=== PATIENT | female | born 1955 | race Caucasian/White ===

== ENCOUNTER 2021-08-30 14:28 | Inpatient (IN) ==
[2021-08-30] MEDS ORDERED: methylPREDNISolone 125 MG/2 ML VIAL IVP ONE ×2 (14:55→21:15)
[2021-08-30] MEDS ORDERED: Ipratropium/Albuterol Neb 3 ML IH ONE (14:55)
[2021-08-30 15:14] LABS: Basophils % 0.1 %; Hematocrit 42.1 % (35.3-44.9); Hemoglobin 14.3 g/dL (11.5-15.4); Immature Granulocytes % 0.1 % (0-4); Lymphocytes # 1.3 K/mcL (0.6-4.6); Lymphocytes % 17.8 %; Mean Corpuscular Hemoglobin 28.1 pg (28.0-33.3); Mean Corpuscular Volume 82.7 fL (83.0-100.0); Mean Platelet Volume 8.4 fL (9.4-12.4); Monocytes # 0.6 K/mcL (0.0-1.3); Monocytes % 8.5 %; Neutrophils # 5.5 K/mcL (1.6-8.9); Platelet Count 248 K/mcL (140-400); Red Blood Count 5.09 M/mcL (3.82-4.97); Red Cell Distribution Width 13.8 % (11.5-14.5); Segmented Neutrophils % 73.5 %; White Blood Count 7.5 K/mcL (4.3-11.1)
[2021-08-30 15:15] LABS: VBG HCO3 15 mEq/L (21-27); VBG PCO2 25 mmHg (41-51); VBG PO2 85 mmHg (25-50)
[2021-08-30 15:36] LABS: Alanine Aminotransferase 13 Units/L (7-52); Albumin 4.4 g/dL (3.5-5.7); Albumin/Globulin Ratio 1.2 (1.1-2.2); Alkaline Phosphatase 117 Units/L (34-104); Aspartate Amino Transferase 16 Units/L (13-39); BUN/Creatinine Ratio 16 (6-26); Bilirubin,Direct 0.1 mg/dL (0.0-0.2); Bilirubin,Indirect 0.3 mg/dL (0.0-1.0); Bilirubin,Total 0.4 mg/dL (0.3-1.0); Blood Urea Nitrogen 16 mg/dL (8-23); Calcium 9.3 mg/dL (8.6-10.3); Carbon Dioxide 14 mEq/L (23-29); Chloride 98 mEq/L (98-107); Globulin 3.7 g/dL (2.4-3.5); Glucose 343 mg/dL (70-105); Magnesium 1.3 mg/dL (1.6-2.6); Osmolality,Calculated 285 (280-300); Potassium 4.1 mEq/L (3.5-5.1); Sodium 130 mEq/L (136-145); Total Protein 8.1 g/dL (6.4-8.9); Troponin I < 0.03 ng/mL (< 0.04); eGFR For African Americans > 60 (> 60); eGFR For Non-African Americans 57 (> 60)
[2021-08-30 15:49] LABS: Influenza A PCR Negative (Negative); Influenza B PCR Negative (Negative); Resp. Syncytial Virus PCR Negative (Negative)
[2021-08-30 15:51] LABS: SARS-CoV-2 by PCR (In House) Negative (Negative)
[2021-08-30 16:49] LABS: ABG Base Excess -6 mEq/L (-2 to 3); ABG HCO3 17 mEq/L (21-27); ABG Oxygen Saturation 100 % (95-98); ABG PCO2 25 mmHg (35-45); ABG PH 7.44 pH Units (7.32-7.45); ABG PO2 198 mmHg (85-104); ABG TCO2 17 mEq/L (20-26)
[2021-08-30] MEDS ORDERED: 0.9 % Sodium Chloride 500 ML IVC ONE (19:20)
[2021-08-30] MEDS ORDERED: RIZATRIPTAN BENZOATE 5 MG PO PRN (21:08)
[2021-08-30] MEDS ORDERED: *HR* Dextrose 50 % in Water (Syg) 50 ML SYRINGE IVP PRN (21:10)
[2021-08-30] MEDS ORDERED: Dextrose Gel 15 GM/37.5 ML TUBE PO PRN ×2 (21:10)
[2021-08-30] MEDS ORDERED: D5% in Water 1,000 ML IVC PRN (21:10)
[2021-08-30] MEDS ORDERED: 0.9 % Sodium Chloride 1,000 ML IVC SCH (21:15)
[2021-08-30] MEDS ORDERED: Naloxone 0.4 MG/ML INJ IVP PRN (21:26)
[2021-08-30] MEDS ORDERED: Acetaminophen 325 MG TABLET PO PRN (21:26)
[2021-08-30] MEDS: Azithromycin 500 MG in 0.9 % Sodium Chloride 250 ML IVPB SCH (22:16)
[2021-08-30] MEDS: Levalbuterol Neb 1.25 MG/3 ML IH SCH (22:55)
[2021-08-30] MEDS: Insulin LISPRO 300 UNITS/3 ML VIAL SUBQ SCH (23:15)
[2021-08-31] MEDS ORDERED: Insulin DETEMIR 100 UNIT/ML X5UNITS SUBQ ONE (01:38)
[2021-08-31] MEDS: Levalbuterol Neb 1.25 MG/3 ML IH SCH ×3 (03:25→10:56)
[2021-08-31] MEDS: *HR* Heparin 5,000 UNIT/ML VIAL SQ SCH ×2 (05:32→16:46)
[2021-08-31 05:56] LABS: Hematocrit 37.2 % (35.3-44.9); Mean Corpuscular HGB Conc 33.3 g/dL (31.6-35.5); Mean Corpuscular Hemoglobin 27.7 pg (28.0-33.3); Mean Platelet Volume 8.4 fL (9.4-12.4); Platelet Count 215 K/mcL (140-400); Red Blood Count 4.48 M/mcL (3.82-4.97); Red Cell Distribution Width 14.2 % (11.5-14.5); White Blood Count 8.8 K/mcL (4.3-11.1)
[2021-08-31 05:57] LABS: Hemoglobin 12.4 g/dL (11.5-15.4)
[2021-08-31] MEDS ORDERED: MethylPREDNISolone 40 MG/ML VIAL IVP SCH ×2 (06:00→08:00)
[2021-08-31 06:18] LABS: % Iron Saturation 15 % (15-50); BUN/Creatinine Ratio 18 (6-26); Blood Urea Nitrogen 16 mg/dL (8-23); Calcium 8.6 mg/dL (8.6-10.3); Carbon Dioxide 17 mEq/L (23-29); Chloride 104 mEq/L (98-107); Chol/HDL Ratio 2.9 (0-4.9); Cholesterol 137 mg/dL (< 200); Glucose 290 mg/dL (70-105); HDL Cholesterol 47 mg/dL (40-59); Iron 50 mcg/dL (50-170); LDL Cholesterol,Calculated 70 mg/dL (< 100); Osmolality,Calculated 290 (280-300); Potassium 4.1 mEq/L (3.5-5.1); Sodium 134 mEq/L (136-145); Transferrin 243 mg/dL (203-362); Triglycerides 98 mg/dL (< 150); eGFR For African Americans > 60 (> 60); eGFR For Non-African Americans > 60 (> 60)
[2021-08-31 06:35] LABS: Ferritin 128 ng/mL (10-120)
[2021-08-31 06:45] LABS: Folate > 22.3 ng/mL (3.0-16.0); Vitamin B12 > 1500 pg/mL (250-1100)
[2021-08-31] MEDS: Multivit/Ca/Min/Fe/FA 1 TAB TABLET PO SCH (08:17)
[2021-08-31] MEDS: predniSONE 20 MG TABLET PO SCH (08:17)
[2021-08-31] MEDS: Cyanocobalamin (B-12) 1,000 MCG TABLET PO SCH (08:17)
[2021-08-31] MEDS: lisinopriL 20 MG TABLET PO SCH (08:18)
[2021-08-31] MEDS: Loratadine 10 MG TABLET PO SCH (08:18)
[2021-08-31] MEDS: Insulin DETEMIR 100 UNIT/ML X5UNITS SUBQ SCH ×2 (08:24→21:07)
[2021-08-31] MEDS: Insulin LISPRO 300 UNITS/3 ML VIAL SUBQ SCH ×4 (08:25→20:03)
[2021-08-31 08:48] LABS: Estimated Average Glucose 157 mg/dl; Hemoglobin A1C 7.1 %
[2021-08-31 10:11] LABS: Procalcitonin 0.07 ng/mL (0.00-0.15)
[2021-08-31] MEDS ORDERED: Ringers Solution, Lactated 1,000 ML IVC ONE (10:24)
[2021-08-31] MEDS ORDERED: Perflutren Lipid Microsphere 1.3 ML in 0.9 % Sodium Chloride 8.7 ML IVP PRN (13:04)
[2021-08-31] MEDS ORDERED: Isovue-370 500 ML BOTTLE IVP ONE (13:05)
[2021-08-31 13:45] LABS: VBG HCO3 17 mEq/L (21-27); VBG PCO2 26 mmHg (41-51); VBG PH 7.42 pH Units (7.32-7.42); VBG PO2 137 mmHg (25-50)
[2021-08-31] MEDS: Ipratropium Neb 0.5 MG NEBULIZER IH SCH ×2 (15:53→19:39)
[2021-08-31] MEDS: Levalbuterol Neb 0.63 MG/3 ML IH SCH ×2 (15:53→19:39)
[2021-08-31] MEDS: Metoprolol XL (24 HR) Succ 25 MG TAB.ER.24H PO SCH (16:46)
[2021-08-31 16:47] LABS: Adenovirus Not Detected (Not Detect); Bordetella Pertussis Not Detected (Not Detect); Chlamydophila pneumoniae Not Detected (Not Detect); Coronavirus 229E Not Detected (Not Detect); Coronavirus HKU1 Not Detected (Not Detect); Coronavirus NL63 Not Detected (Not Detect); Coronavirus OC43 Not Detected (Not Detect); Human Metapneumovirus DETECTED (Not Detect); Human Rhinovirus/Enterovirus Not Detected (Not Detect); Influenza A Subtype 2009 H1 Not Detected (Not Detect); Influenza B Not Detected (Not Detect); Mycoplasma pneumoniae Not Detected (Not Detect); Parainfluenza Virus 1 Not Detected (Not Detect); Parainfluenza Virus 2 Not Detected (Not Detect); Parainfluenza Virus 3 Not Detected (Not Detect); Parainfluenza Virus 4 Not Detected (Not Detect); Respiratory Syncytial Virus Not Detected (Not Detect); SARS-CoV-2 Not Detected (Not Detect)
[2021-08-31] MEDS ORDERED: Budesonide Neb 0.25 MG/2 ML ONE (19:33)
[2021-08-31] MEDS: Budesonide Neb 0.5 MG/2 ML IH SCH (19:42)
[2021-08-31] MEDS: Azithromycin 500 MG in 0.9 % Sodium Chloride 250 ML IVPB SCH (19:59)
[2021-08-31] MEDS ORDERED: Insulin LISPRO 300 UNITS/3 ML VIAL SUBQ SCH (21:00)
[2021-08-31] MEDS: Temazepam 15 MG CAPSULE PO SCH (21:05)
[2021-09-01 02:11] LABS: Hematocrit 32.2 % (35.3-44.9); Mean Corpuscular HGB Conc 32.9 g/dL (31.6-35.5); Mean Corpuscular Hemoglobin 27.7 pg (28.0-33.3); Mean Corpuscular Volume 84.1 fL (83.0-100.0); Mean Platelet Volume 8.2 fL (9.4-12.4); Platelet Count 195 K/mcL (140-400); Red Blood Count 3.83 M/mcL (3.82-4.97); Red Cell Distribution Width 14.6 % (11.5-14.5)
[2021-09-01 02:15] LABS: Hemoglobin 10.6 g/dL (11.5-15.4); White Blood Count 14.1 K/mcL (4.3-11.1)
[2021-09-01 02:20] LABS: BUN/Creatinine Ratio 25 (6-26); Blood Urea Nitrogen 19 mg/dL (8-23); Calcium 8.3 mg/dL (8.6-10.3); Carbon Dioxide 23 mEq/L (23-29); Chloride 106 mEq/L (98-107); Glucose 117 mg/dL (70-105); Osmolality,Calculated 289 (280-300); Potassium 3.7 mEq/L (3.5-5.1); Sodium 138 mEq/L (136-145); eGFR For African Americans > 60 (> 60); eGFR For Non-African Americans > 60 (> 60)
[2021-09-01 02:26] LABS: Magnesium 1.6 mg/dL (1.6-2.6)
[2021-09-01 02:36] LABS: Thyroid Stimulating Hormone 0.086 mcIU/mL (0.340-5.600)
[2021-09-01] MEDS: Ipratropium Neb 0.5 MG NEBULIZER IH SCH ×4 (03:47→20:15)
[2021-09-01] MEDS: Levalbuterol Neb 0.63 MG/3 ML IH SCH ×4 (03:47→20:15)
[2021-09-01] MEDS: *HR* Heparin 5,000 UNIT/ML VIAL SQ SCH ×2 (06:03→17:48)
[2021-09-01] MEDS: Insulin LISPRO 300 UNITS/3 ML VIAL SUBQ SCH ×4 (08:23→20:02)
[2021-09-01 08:31] LABS: Triiodothyronine (T3) Free 2.86 pg/mL (2.50-3.90)
[2021-09-01] MEDS: Loratadine 10 MG TABLET PO SCH (09:29)
[2021-09-01] MEDS: lisinopriL 20 MG TABLET PO SCH (09:29)
[2021-09-01] MEDS: predniSONE 20 MG TABLET PO SCH (09:29)
[2021-09-01] MEDS: Metoprolol XL (24 HR) Succ 25 MG TAB.ER.24H PO SCH (09:29)
[2021-09-01] MEDS: Cyanocobalamin (B-12) 1,000 MCG TABLET PO SCH (09:29)
[2021-09-01] MEDS: Multivit/Ca/Min/Fe/FA 1 TAB TABLET PO SCH (09:30)
[2021-09-01] MEDS: Insulin DETEMIR 100 UNIT/ML X5UNITS SUBQ SCH ×2 (09:36→20:01)
[2021-09-01] MEDS: Budesonide Neb 0.5 MG/2 ML IH SCH ×2 (11:01→20:15)
[2021-09-01] MEDS: Temazepam 15 MG CAPSULE PO SCH (19:50)
[2021-09-01] MEDS: Azithromycin 500 MG in 0.9 % Sodium Chloride 250 ML IVPB SCH (19:51)
[2021-09-02] MEDS: Levalbuterol Neb 0.63 MG/3 ML IH SCH ×4 (04:09→19:37)
[2021-09-02] MEDS: Ipratropium Neb 0.5 MG NEBULIZER IH SCH ×4 (04:09→19:37)
[2021-09-02] MEDS: *HR* Heparin 5,000 UNIT/ML VIAL SQ SCH ×2 (05:14→16:39)
[2021-09-02 06:05] LABS: Basophils % 0.1 %; Eosinophils % 0.3 %; Hematocrit 35.1 % (35.3-44.9); Hemoglobin 11.4 g/dL (11.5-15.4); Immature Granulocytes % 0.4 % (0-4); Lymphocytes # 3.6 K/mcL (0.6-4.6); Lymphocytes % 36.4 %; Mean Corpuscular HGB Conc 32.5 g/dL (31.6-35.5); Mean Corpuscular Volume 86.2 fL (83.0-100.0); Mean Platelet Volume 8.6 fL (9.4-12.4); Monocytes # 0.8 K/mcL (0.0-1.3); Monocytes % 7.9 %; Neutrophils # 5.5 K/mcL (1.6-8.9); Platelet Count 238 K/mcL (140-400); Red Blood Count 4.07 M/mcL (3.82-4.97); Red Cell Distribution Width 14.6 % (11.5-14.5); Segmented Neutrophils % 54.9 %
[2021-09-02 06:26] LABS: BUN/Creatinine Ratio 20 (6-26); Blood Urea Nitrogen 15 mg/dL (8-23); Calcium 8.5 mg/dL (8.6-10.3); Carbon Dioxide 25 mEq/L (23-29); Chloride 103 mEq/L (98-107); Glucose 88 mg/dL (70-105); Magnesium 1.7 mg/dL (1.6-2.6); Osmolality,Calculated 280 (280-300); Potassium 3.8 mEq/L (3.5-5.1); Sodium 135 mEq/L (136-145); eGFR For African Americans > 60 (> 60); eGFR For Non-African Americans > 60 (> 60)
[2021-09-02] MEDS: Insulin LISPRO 300 UNITS/3 ML VIAL SUBQ SCH ×3 (07:30→16:40)
[2021-09-02] MEDS: Insulin DETEMIR 100 UNIT/ML X5UNITS SUBQ SCH ×2 (07:43→23:16)
[2021-09-02] MEDS: predniSONE 20 MG TABLET PO SCH (07:43)
[2021-09-02] MEDS: Metoprolol XL (24 HR) Succ 25 MG TAB.ER.24H PO SCH (07:44)
[2021-09-02] MEDS: Multivit/Ca/Min/Fe/FA 1 TAB TABLET PO SCH (07:44)
[2021-09-02] MEDS: Cyanocobalamin (B-12) 1,000 MCG TABLET PO SCH (07:44)
[2021-09-02] MEDS: Loratadine 10 MG TABLET PO SCH (07:44)
[2021-09-02] MEDS: lisinopriL 20 MG TABLET PO SCH (07:44)
[2021-09-02] MEDS: Budesonide Neb 0.5 MG/2 ML IH SCH ×2 (10:58→19:37)
[2021-09-02] MEDS: Azithromycin 500 MG in 0.9 % Sodium Chloride 250 ML IVPB SCH (23:16)
[2021-09-02] MEDS: Temazepam 15 MG CAPSULE PO SCH (23:16)
[2021-09-03 02:33] LABS: Basophils % 0.2 %; Eosinophils % 0.4 %; Hematocrit 32.1 % (35.3-44.9); Hemoglobin 10.5 g/dL (11.5-15.4); Immature Granulocytes % 0.3 % (0-4); Lymphocytes # 3.4 K/mcL (0.6-4.6); Lymphocytes % 36.5 %; Mean Corpuscular HGB Conc 32.7 g/dL (31.6-35.5); Mean Corpuscular Hemoglobin 27.6 pg (28.0-33.3); Mean Corpuscular Volume 84.3 fL (83.0-100.0); Mean Platelet Volume 8.5 fL (9.4-12.4); Monocytes # 0.7 K/mcL (0.0-1.3); Monocytes % 7.7 %; Neutrophils # 5.2 K/mcL (1.6-8.9); Platelet Count 236 K/mcL (140-400); Red Blood Count 3.81 M/mcL (3.82-4.97); Red Cell Distribution Width 13.9 % (11.5-14.5); Segmented Neutrophils % 54.9 %; White Blood Count 9.4 K/mcL (4.3-11.1)
[2021-09-03 02:49] LABS: BUN/Creatinine Ratio 22 (6-26); Blood Urea Nitrogen 16 mg/dL (8-23); Carbon Dioxide 24 mEq/L (23-29); Chloride 104 mEq/L (98-107); Glucose 94 mg/dL (70-105); Magnesium 1.6 mg/dL (1.6-2.6); Osmolality,Calculated 281 (280-300); Potassium 3.1 mEq/L (3.5-5.1); Sodium 135 mEq/L (136-145); eGFR For African Americans > 60 (> 60); eGFR For Non-African Americans > 60 (> 60)
[2021-09-03] MEDS: Levalbuterol Neb 0.63 MG/3 ML IH SCH ×2 (03:31→10:55)
[2021-09-03] MEDS: Ipratropium Neb 0.5 MG NEBULIZER IH SCH ×2 (03:31→10:54)
[2021-09-03 03:34] VITALS: O2SAT 90
[2021-09-03 04:11] VITALS: TEMP 98.1
[2021-09-03] MEDS: *HR* Heparin 5,000 UNIT/ML VIAL SQ SCH (05:44)
[2021-09-03 07:32] VITALS: BP 145/76; PULSE 77
[2021-09-03] MEDS: Insulin LISPRO 300 UNITS/3 ML VIAL SUBQ SCH ×2 (07:51→11:20)
[2021-09-03] MEDS: Multivit/Ca/Min/Fe/FA 1 TAB TABLET PO SCH (07:58)
[2021-09-03] MEDS: Loratadine 10 MG TABLET PO SCH (07:58)
[2021-09-03] MEDS: Metoprolol XL (24 HR) Succ 25 MG TAB.ER.24H PO SCH (07:58)
[2021-09-03] MEDS: predniSONE 20 MG TABLET PO SCH (07:59)
[2021-09-03] MEDS: lisinopriL 20 MG TABLET PO SCH (07:59)
[2021-09-03] MEDS: Insulin DETEMIR 100 UNIT/ML X5UNITS SUBQ SCH (07:59)
[2021-09-03] MEDS: Cyanocobalamin (B-12) 1,000 MCG TABLET PO SCH (07:59)
[2021-09-03] MEDS: Budesonide Neb 0.5 MG/2 ML IH SCH (10:54)
== END 2021-09-03 11:38 | disposition home or self-care (01) | DRG 193 ==
LOC: EMEROOARM 14:28 → 2ANU 14:28 → SUATTDRO 20:01 → 2ANU 20:59
PROVIDERS: ADMIT Internal Medicine; ATTEND Pharmacist